=== PATIENT | female | born 1940 | race Caucasian/White ===

== ENCOUNTER 2017-09-10 22:05 | Emergency (ER) | payer MEDICARE, OTHER ==
[~2017-09-10] VITALS: Ht 154.9 cm; Wt 65.3 kg
[~2017-09-10 22:05] MED LIST: AMBIEN10 MG PO; ASPIRIN PO; BENZONATE PO; KEFLEX500 MG PO; LANTUS100 UNIT/2 SQ; LOVENOX30 MG/0.3 SC; METOPROLOL TART25 MG PO; NITROQUICK0.4 M1 SL; NORCO 7.5-3251 EACH PO; VALIUM5 MG PO; Z.0.GLUCOPHAGE500 MG PO; Z.0.NEXIUM40 MG PO; Z.0.PLAVIX75 MG PO; Z.0.PREDNISONE20 MG PO; Z.0.VICTOZA 2-0.6 MG SQ; Z.0.VYTORIN 10-801 E PO; Z.1.BENICAR HCT 401 PO; [UNRECOGNIZED DRUG - OTHER] PO; [UNRECOGNIZED DRUG - OTHER] PO; [UNRECOGNIZED DRUG - REMARK] PO
--- OUTSIDE RECORDS SUMMARY | 2017-09-10 22:08 | XMS REPORT | Continuity of Care Document ---
Author Author [facility] Address [address] [place] [address] ;ext= Care Team Providers Care Welder Apprentice Arc Name Role Phone ELIZABETH GRIMALDO Admjuan francisco ELIZABETH GRIMALDO [facility] Admission Diagnosis Code Admission Diagnosis Date [id number] Lumbar radiculopathy Social History Element Description Code Description Smoking Status Code System Start Date End Date Smoking Status [id number] Never smoker SNOMED-CT Problems Code Code System Problem Name Start Date End Date Status 120500177 SNOMED-CT Insect bite - wound 01/08/2017 Active 46130364 SNOMED-CT Poisoning due to brown recluse spider venom 01/08/2017 Active 324886540 SNOMED-CT Heart disease NOS Unknown Active 28040108 SNOMED-CT Hypertensive disorder Unknown Active 19805210 SNOMED-CT Diabetes mellitus type 2 Unknown Active Medications RxNorm Medication Dose Route Instructions Indications Start Date End Date Status benicar Active lantus Active metformin Active plavix Active victoza Active Allergies Code Code System Allergy Substance Type Reaction Severity Start Date End Date Status 84430 RXNorm IV Dye, Iodine Containing Contrast Media Drug allergy Unknown Active 14659 RXNorm Sulfa(Sulfonamide Antibiotics) Drug allergy Unknown Active Results Radiology Results Order: [id number] MRI LSPINE W/O CONTRAST* Exam Completion Date:05/02/2017 12:30 Procedure: MRI LSPINE W/O CONTRAST Exam Date: 05/02/2017 12:30 PMOrdering Provider: ELIZABETH Ramosinical Indication: Lumbar RADICULOPATHY. Low back pain radiating to the leftlegComparison: None Technique: Multisequence , multiplanar images of the lumbar spine were obtainedwithout administration of intravenous gadolinium based contrast. 0 cc contrastwas given.Findings: Extensive discogenic endplate changes are seen throughout the lumbar spine.Superior and inferior endplate Schmorl's formation is present in the lumbarvertebral bodies. There is no acute fracture or focal osseous destruction.There is slight straightening of normal lumbar lordosis..The conus terminates at L2-L3 level, within normal limits. Nerve roots of thecauda equina are unremarkable.L1-L2: Diffuse disc bulge and bilateral moderate facet degeneration. Nosignificant central canal stenosis. Neural foramina are patent.L2-L3: Diffuse disc bulge and mild bilateral facet degeneration. Mild ligamentumflavum buckling. Mild central canal stenosis. Neural foramina are patent.L3-L4: Left eccentric disc osteophyte complex, bilateral moderate facetdegeneration and ligamentum flavum hypertrophy. There is mild dorsal epidurallipomatosis. Moderate central canal stenosis. Moderate narrowing of the leftlateral recess. Mild to moderate left neural foraminal stenosis.L4-L5: Diffuse disc bulge, moderate to severe bilateral facet degeneration,dorsal epidural lipomatosis and ligamentum flavum buckling result in severecentral canal stenosis. Severe right and moderate left neural foraminalstenosis.L5-S1: Circumferential disc bulge and moderate bilateral facet degeneration arepresent. Mild ligamentum flavum buckling. No significant central canal stenosis.Moderate to severe left and moderate right neural foraminal stenosis.Other: Probable simple cyst in the lower pole of the right kidney.Impression:Multilevel, multifactorial spondylosis most notably at L4-L5 where there issevere central canal stenosis. Moderate central canal stenosis at L3-L4.Varying degrees of neural foraminal stenosis and lateral recess stenosisdetailed level by level above.This final report was electronically signed by Dr Molly Ryder MD 05/02/20173:56 PMDictated By: Bridger RYDER: 05/02/2017 16:02 Vital Signs * No data in the system Plan of Care * No data in the system Procedures Code Code System Procedure Name Target Site Date of Procedure MRI LSPINE W/O CONTRAST 05/02/2017 16:03 Encounters Date Code Diagnosis Status (ICD10) - M4726 OTH SPONDYLS RADICULOPATHY LUMB RGN Active Immunizations * No data in the system Functional Status * No data in the system Hospital Discharge Instructions * No data in the system
--- OUTSIDE RECORDS SUMMARY | 2017-09-10 22:08 | XMS REPORT | Continuity of Care Document ---
Author Author [facility] Organization [facility] Address [address] [place] [address] ;ext= Care Team Providers Care Healthcare Account Manager Name Role Phone SANCHO CARRASCO [facility] Admission Diagnosis Code Admission Diagnosis Date [id number] Tear of medial meniscus of knee Social History Element Description Code Description Smoking Status Code System Start Date End Date Smoking Status [id number] Former smoker SNOMED-CT 1976 Problems Code Code System Problem Name Start Date End Date Status 865241461 SNOMED-CT Insect bite - wound 01/08/2017 Active 30023491 SNOMED-CT Poisoning due to brown recluse spider venom 01/08/2017 Active 926194318 SNOMED-CT Backache Unknown Active 033729224 SNOMED-CT Heart disease NOS Unknown Active 603755402 SNOMED-CT Gastroesophageal reflux disease Unknown Active 7593293 SNOMED-CT Arthritis Unknown Active 86982714 SNOMED-CT Hypertensive disorder Unknown Active 82587584 SNOMED-CT Diabetes mellitus type 2 Unknown Active Medications RxNorm Medication Dose Route Instructions Indications Start Date End Date Status 169182 3 ML liraglutide 6 MG/ML Pen Injector 1.2 milligram Subcutaneous subcutaneously every day Active 093131 benzonatate 100 MG Oral Capsule 100 milligram Oral orally every 4 hours as needed. cough Active 899420 clopidogrel 75 MG Oral Tablet 75 milligram Oral orally every day Active 9635588 Diclofenac Sodium 75 MG / Misoprostol 0.2 MG Oral Tablet 1 tablet Oral orally 2 times per day Active 341627 ezetimibe 10 MG / Simvastatin 80 MG Oral Tablet 1 tablet Oral orally every day Active 190399 gabapentin 600 MG Oral Tablet 600 milligram Oral orally every day Active 247061 Hydrochlorothiazide 12.5 MG / Olmesartan medoxomil 40 MG Oral Tablet 1 tablet Oral orally every day Active HYDROCODONE-ACETAMINOPHEN 7.5MG-325MG TABLET 1 TABLET 1 TABLET ORAL ORAL EVERY 6 HOURS NEEDED as needed. 05/18/2017 Active 644574 Insulin Glargine 65 unit Subcutaneous subcutaneously every day at bedtime Active 888277 Metformin hydrochloride 850 MG Oral Tablet 850 milligram Oral orally 3 times per day Active 4917 Nitroglycerin 0.4 milligram Sublingual sublingually every 5 minutes as needed. (3 doses) (until response; do not exceed 3 doses per event;) chest pain Active 45686 pantoprazole 40 milligrams Oral orally every day Active benicar No Longer Active 281575 Fenofibrate 40 MG Oral Tablet 40 milligram Oral orally every day No Longer Active 61434 fexofenadine 60 milligram Oral orally 2 times per day No Longer Active lantus No Longer Active metformin No Longer Active plavix No Longer Active victoza No Longer Active Allergies Code Code System Allergy Substance Type Reaction Severity Start Date End Date Status 513088 RXNorm Benadryl Drug allergy Unknown Active 92465 RXNorm IV Dye, Iodine Containing Contrast Media Drug allergy Unknown Active 96509 RXNorm Sulfa(Sulfonamide Antibiotics) Drug allergy Unknown Active 7052 RXNorm morphine Drug allergy Unknown Active Results Radiology Results Order: [id number] MRI KNEE WO CONTRAST* Exam Completion Date:07/26/2017 16:15 Procedure: MRI KNEE WO CONTRAST Order Date: 07/26/2017 4:15 PMOrdering Provider: SANCHO Gibbonsical Indication: Complex tear of medial meniscus, current injury, leftknee, initial encounter. Medial left knee painComparison: None Technique: Multisequence, multiplanar images of the left knee were acquired without intravenous contrast.Findings: Menisci:Medial Meniscus: There is an oblique horizontal tear involving the posteriorhorn of the meniscus extending to the inferior articular surface. No significantmeniscal extrusion is present.Lateral Meniscus: There is blunting of the free margin of the body of themeniscus. No definite superimposed tear. No meniscal extrusion.Ligaments and Intercondylar Notch: There is diffusely thickened and somewhatheterogeneous appearance of the posterior cruciate ligament compatible withmucoid degeneration. The ACL, MCL, and LCL complex are intact.Articular Cartilage:Medial Compartment: There is grade 4 chondral thinning overlying the centraland posterior weightbearing surfaces of the medial femoral condyle.Lateral Compartment: There is a 1 cm x 1 cm focus of essentially full- thicknesscartilage loss about the anterior weightbearing surface of the lateral femoralcondyle.Patellofemoral Joint: Multifocal deep fissuring of the cartilage overlying thecentral femoral trochlea.Extensor Mechanism: The quadriceps and patellar tendon are intact. Bones: Remaining bone marrow signal intensity is normal. Prominenttricompartmental osteophyte formation is present most notably involving themedial compartment. Possible 1 cm osteophyte or intra-articular loose bodywithin the posterior aspect of the knee joint space..Soft Tissues/ Miscellaneous: Small knee joint effusion is present. There is asmall Kimble's cyst measuring up to 2 cm..IMPRESSION:Oblique horizontal tear involves the medial meniscus. No extrusion.Significant mucoid degeneration involves the posterior cruciate ligament withoutsuperimposed tear.Tricompartmental osteoarthritis most notably involving the medial compartmentwhere there is relatively high-grade cartilage loss about the medial femoralcondyle.Possible 1 cm marginal osteophyte or intravertebral body within the posterioraspect of the knee joint.Small joint effusion and small Kimble's cyst.This final report was electronically signed by Dr Molly Ryder MD 07/27/201711:48 AMDictated By: GLADYS RYDERKDate: 07/27/2017 11:54 Vital Signs * No data in the system Plan of Care * No data in the system Procedures Code Code System Procedure Name Target Site Date of Procedure MRI KNEE WO CONTRAST 07/27/2017 11:54 Encounters Date Code Diagnosis Status (ICD10) - U40344M COMPLEX TEAR MM CURR LT KNEE INIT Active Immunizations Vaccine Code Code System Vaccine Name Date Status 135 CVX influenza, high dose seasonal, preservative-free 02/18/2017 Completed Functional Status * No data in the system Hospital Discharge Instructions * No data in the system
--- OUTSIDE RECORDS SUMMARY | 2017-09-10 22:08 | XMS REPORT ---
Author Author [facility] Address Unknown Phone Unavailable Care Team Providers Care Trapper Animal Name Role Phone DANILO, SANCHO Unavailable Unavailable ELIZABETH GRIMALDO Unavailable Unavailable Problems This patient has no known problems. Allergies, Adverse Reactions, Alerts This patient has no known allergies or adverse reactions. Medications This patient has no known medications. Results Test Description Test Time Test Comments Text Results Atomic Results Result Comments MRI KNEE WO CONTRAST 2017-07-27 11:54:42 medial pain intermittent x years, hx of scope done 22 years ago Procedure: MRI KNEE WO CONTRASTOrder Date: 2017 4:15 PMOrdering Provider: SANCHO BURDICKERClinical Indication: Complex tear of medial meniscus, current injury, leftknee, initial encounter. Medial left knee painComparison: NoneTechnique: Multisequence, multiplanar images of the left knee were acquiredwithout intravenous contrast.Findings:Menisci:Medial Meniscus: There is an oblique horizontal tear [...] cm x 1 cm focus of essentially full-thicknesscartilage loss about the anterior weightbearing surface of the lateral femoralcondyle.Patellofemoral Joint: Multifocal deep fissuring of the cartilage overlying thecentral femoral trochlea.Extensor Mechanism: The quadriceps and patellar tendon are intact.Bones: Remaining bone marrow signal intensity is normal. Prominenttricompartmental osteophyte formation is present most notably involving themedial compartment. Possible 1 cm osteophyte or intra-articular loose bodywithin the posterior aspect of the knee joint space..Soft Tissues/Miscellaneous: Small knee joint effusion is present. There [...] electronically signed by Dr Molly Ryder MD 201711:[id number] AMDictated By: GLADYS RYDERKDate: 07/27/2017 11:54 URINALYSIS WITHOUT MICROSCOPIC 2017-05-16 11:38:00 Color (test code=UCOLR) YELLOW Clarity (test code=UCLAR) SL CLOUDY Glucose (test code=UGLUC) NEGATIVE NEGATIVE Bilirubin (test code=UBILI) NEGATIVE NEGATIVE Ketones (test code=UKET) NEGATIVE NEGATIVE Specific Vesta (test code=USPGR) 1.015 1.005-1.030 Blood (test code=UBLD) NEGATIVE NEGATIVE PH (test code=UPH) 5.5 4.5-8.0 Protein (test code=UPROT) NEGATIVE NEGATIVE Urobilinogen (test code=U UROB) 0.2 >0.2 Nitrite (test code=UNITR) NEGATIVE NEGATIVE Leukocyte Esterase (test code=ULEUK) TRACE NEGATIVE [id number] 11:35:00* Test Item Value Reference Range Comments Glucose (test code=GLU) 74 mg/dl 75-110 BUN (test code=BUN) 28.0 mg/dl 6.0-17.0 Creatinine (test code=CREA) 0.9 mg/dl 0.4-1.2 Sodium (test code=NA) 143 mmol/l 137-145 Potassium (test code=K) 5.0 mmol/l 3.5-5.0 Chloride (test code=CL) 103 mmol/l 98-107 CO2 (test code=CO2) 27 mmol/l 22-30 Calcium (test code=CALC) 10.9 mg/dl 8.4-10.2 EGFR if (test code=EGFRAA) >60 mL/min/1.73m\\S\\2 EGFR if Non- (test code=EGFRNA) >60 mL/min/1.73m\\S\\2 Estimated Glomerular Filtration Rate (eGFR) Reference Intervals Decision Points for 18 years and older and average body mass: >=60 Does not exclude kidney disease. 30 - 59 Suggests moderate chronic kidney disease and indicates the need for further investigation including assessment of proteinuria and cardiovascular factors. < 30 Usually indicates a need for referral for assessment and management of chronic kidney failure. CBC (HEMOGRAM ONLY)2017-05-16 10:48:00* Test Item Value Reference Range Comments WBC (test code=WBC) 10.93 10\\S\\3/ul 4.80-10.80 RBC (test code=RBC) 4.16 10\\S\\6/ul 4.20-5.40 Hemoglobin (test code=HGB) 11.8 gm/dl 12.0-14.0 Hematocrit (test code=HCT) 37.4 % 37.0-47.0 MCV (test code=MCV) 89.9 fL 81.0-99.0 MCH (test code=MCH) 28.4 pg 27.0-31.0 MCHC (test code=MCHC) 31.6 gm/dl 33.0-37.0 RDW (test code=RDWVC) 12.9 % 11.5-14.5 Platelet (test code=PLT) 194 10\\S\\3/ul 130-400 MPV (test code=MPV) 10.5 fL 7.4-10.4 "NOT MEASURED" RESULTS ARE DISPLAYED WHEN THE INSTRUMENT HAS A SUPPRESSED OR UNREPORTABLE RESULT. THIS WILL MOST OFTEN HAPPEN WITH THE MPV WHEN THERE IS AN ABNORMAL PLATELET DISTRIBUTION DUE TO A CRITICAL LOW VALUE OR PLATELET CLUMPING. THE RDW MAY BE SUPPRESSED IF THERE ARE MULTIPLE PEAKS PRESENT ON THE RBC HISTOGRAM. IN THIS CASE, A MANUAL REVIEW OF THE SLIDE WILL BE PERFORMED, AND RBC MORPHOLOGY WILL BE NOTED ON THE REPORT. MRI LSPINE W/O [id number] 16:02:57Lumbar pain that radiates to left calf onset 25 years ago. PT, chiropratic treatment and pain manageProcedure: MRI LSPINE W/O CONTRASTExam Date: 05/02/2017 12:30 PMOrdering Provider: ELIZABETH Ramosinical Indication: Lumbar RADICULOPATHY. Low back pain radiating to the leftlegComparison: NoneTechnique: Multisequence, multiplanar images of the lumbar spine were obtainedwithout administration of intravenous gadolinium based contrast. 0 cc contrastwas given.Findings:Extensive discogenic endplate changes are seen throughout the [...] Dr Molly Ryder MD 05/02/20173:56 PMDictated By: GLADYS RYDERKDate: 05/02/2017 16:02
--- OUTSIDE RECORDS SUMMARY | 2017-09-10 22:08 | XMS REPORT | Continuity of Care Document ---
Author Author [facility] Organization 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 Phone ELIZABETH GRIMALDO [facility] ELIZABETH GRIMALDO [facility] Admission Diagnosis Code Admission Diagnosis Date [id number] Low back pain Social History Element Description Code Description Smoking Status Code System Start Date End Date Smoking Status [id number] Former smoker SNOMED-CT 1976 Problems Code Code System Problem Name Start Date End Date Status 657876394 SNOMED-CT Insect bite - wound 01/08/2017 Active 40914484 SNOMED-CT Poisoning due to brown recluse spider venom 01/08/2017 Active 418763322 SNOMED-CT Backache Unknown Active 736163303 SNOMED-CT Heart disease NOS Unknown Active 912257752 SNOMED-CT Gastroesophageal reflux disease Unknown Active 0123585 SNOMED-CT Arthritis Unknown Active 69359069 SNOMED-CT Hypertensive disorder Unknown Active 15706862 SNOMED-CT Diabetes mellitus type 2 Unknown Active Medications RxNorm Medication Dose Route Instructions Indications Start Date End Date Status 125120 3 ML liraglutide 6 MG/ML Pen Injector 1.2 milligram Subcutaneous subcutaneously every day Active 290055 benzonatate 100 MG Oral Capsule 100 milligram Oral orally every 4 hours as needed. cough Active 638295 clopidogrel 75 MG Oral Tablet 75 milligram Oral orally every day Active 6840256 Diclofenac Sodium 75 MG / Misoprostol 0.2 MG Oral Tablet 1 tablet Oral orally 2 times per day Active 154751 ezetimibe 10 MG / Simvastatin 80 MG Oral Tablet 1 tablet Oral orally every day Active 258610 gabapentin 600 MG Oral Tablet 600 milligram Oral orally every day Active 883591 Hydrochlorothiazide 12.5 MG / Olmesartan medoxomil 40 MG Oral Tablet 1 tablet Oral orally every day Active HYDROCODONE-ACETAMINOPHEN 7.5MG-325MG TABLET 1 TABLET 1 TABLET ORAL ORAL EVERY 6 HOURS NEEDED as needed. 05/18/2017 Active 883824 Insulin Glargine 65 unit Subcutaneous subcutaneously every day at bedtime Active 434904 Metformin hydrochloride 850 MG Oral Tablet 850 milligram Oral orally 3 times per day Active 4917 Nitroglycerin 0.4 milligram Sublingual sublingually every 5 minutes as needed. (3 doses) (until response; do not exceed 3 doses per event;) chest pain Active 57066 pantoprazole 40 milligrams Oral orally every day Active benicar No Longer Active 318395 Fenofibrate 40 MG Oral Tablet 40 milligram Oral orally every day No Longer Active 08975 fexofenadine 60 milligram Oral orally 2 times per day No Longer Active lantus No Longer Active metformin No Longer Active plavix No Longer Active victoza No Longer Active Allergies Code Code System Allergy Substance Type Reaction Severity Start Date End Date Status 264482 RXNorm Benadryl Drug allergy Unknown Active 68579 RXNorm IV Dye, Iodine Containing Contrast Media Drug allergy Unknown Active 80327 RXNorm Sulfa(Sulfonamide Antibiotics) Drug allergy Unknown Active 7052 RXNorm morphine Drug allergy Unknown Active Results Laboratory Results Order: URINALYSIS W/O MICROSCOPIC EXAM LOINC Test Result Flag Range Unit Date 78 1Color:Type:Pt:Urine:Nom YELLOW 05/16/2017 11:00 5767-9 1Appearance:Aper:Pt:Urine:Nom SL CLOUDY 05/16/2017 11:00 2349-9 1Glucose:ACnc:Pt:Urine:Ord NEGATIVE NEGATIVE 05/16/2017 11:00 5770-3 1Bilirubin:ACnc:Pt:Urine:Ord:Test strip NEGATIVE NEGATIVE 11:00 2514-8 1Ketones:ACnc:Pt:Urine:Ord:Test strip NEGATIVE NEGATIVE 2016 11:00 5811-5 1Specific gravity:Rden:Pt:Urine:Qn:Test strip 1.015 A 1.005-1.030 05/16/2017 11:00 5794-3 1Hemoglobin:ACnc:Pt:Urine:Ord:Test strip NEGATIVE NEGATIVE 11:00 5803-2 1pH:LsCnc:Pt:Urine:Qn:Test strip 5.5 A 4.5-8.0 05/16/2017 11:00 30962-1 1Protein:ACnc:Pt:Urine:Ord:Test strip NEGATIVE NEGATIVE 05/16 11:00 5818-0 1Urobilinogen:ACnc:Pt:Urine:Ord:Test strip 0.2 0.2 05/16/2017 11:00 5802-4 1Nitrite:ACnc:Pt:Urine:Ord:Test strip NEGATIVE NEGATIVE 2016 11:00 5799-2 1Leukocyte esterase:ACnc:Pt:Urine:Ord:Test strip TRACE A NEGATIVE 05/16/2017 11:00 * Performing Lab Footnotes:* [address] [place] [address] [id number] [place] [id number] [place] - MD: DIRECTOR SOLEDAD RDZ Order: BMP BASIC METABOLIC PANEL LOINC Test Result Flag Range Unit Date 1Glucose 74 L 75-110 mg/dl 05/16/2017 10:33 1BUN 28 H 6.0-17.0 mg/dl 05/16/2017 10:33 1Creatinine 0.9 0.4-1.2 mg/dl 05/16/2017 10:33 1Sodium 143 137-145 mmol/l 05/16/2017 10:33 1Potassium 5 3.5-5.0 mmol/l 05/16/2017 10:33 1Chloride 103 98-107 mmol/l 05/16/2017 10:33 1CO2 27 22-30 mmol/l 05/16/2017 10:33 1Calcium 10.9 H 8.4-10.2 mg/dl 05/16/2017 10:33 1EGFR if >60 mL/min/1.73m^2 05/16/2017 10:33 1EGFR if Non- >60 mL/min/1.73m^2 05/16/2017 10:33 Note: Estimated Glomerular Filtration Rate (eGFR) Reference Intervals Decision Points for 18 years and older and average body mass: >=60 Does not exclude kidney disease. 30 - 59 Suggests moderate chronic kidney disease and indicates the need for further investigation including assessment of proteinuria and cardiovascular factors. < 30 Usually indicates a need for referral for assessment and management of chronic kidney failure. * Performing Lab Footnotes:* [address] [place] [address] - [id number] - [address] [facility] [address] - [place] [address] [facility] - MD: DIRECTOR SOLEDAD RDZ Order: CBC - HEMOGRAM ONLY LOINC Test Result Flag Range Unit Date 1Leukocytes^^corrected for nucleated erythrocytes:NCnc:Pt:Bld:Qn: Automated count 10.93 H 4.80-10.80 10^3/ul 05/16/2017 10:33 789-8 1Erythrocytes:NCnc:Pt:Bld:Qn:Automated count 4.16 L 4.20-5.40 10^6/ ul 05/16/2017 10:33 718-7 1Hemoglobin:MCnc:Pt:Bld:Qn 11.8 L 12.0-14.0 gm/dl 05/16/2017 10:33 4544-3 1Hematocrit:VFr:Pt:Bld:Qn:Automated count 37.4 37.0-47.0 % 05/16 10:33 787-2 1Erythrocyte mean corpuscular volume:EntVol:Pt:RBC:Qn:Automated count 89.9 81.0-99.0 fL 05/16/2017 10:33 785-6 1Erythrocyte mean corpuscular hemoglobin:EntMass:Pt:RBC:Qn:Automated count 28.4 27.0-31.0 pg 05/16/2017 10:33 786-4 1Erythrocyte mean corpuscular hemoglobin concentration:MCnc:Pt:RBC:Qn: Automated count 31.6 L 33.0-37.0 gm/dl 05/16/2017 10:33 788-0 1Erythrocyte distribution width:Ratio:Pt:RBC:Qn:Automated count 12.9 11.5-14.5 % 05/16/2017 10:33 777-3 1Platelets:NCnc:Pt:Bld:Qn:Automated count 194 130-400 10^3/ul 10:33 05795-8 1Platelet mean volume:EntVol:Pt:Bld:Qn:Automated count 10.5 A 7.4- 10.4 fL 05/16/2017 10:33 Note: 'NOT MEASURED' RESULTS ARE DISPLAYED WHEN THE INSTRUMENT HAS [...] MORPHOLOGY WILL BE NOTED ON THE REPORT. * Performing Lab Footnotes:* [address] [place] [address] - [id number] - [address] [place] [place] [address] [facility] [place] [address] [facility] - MD: DIRECTOR SOLEDAD RDZ Vital Signs Vitals Value Date BP Systolic 108 mmHg 05/19/2017 BP Diastolic 56 mmHg 05/19/2017 Body Temperature 98.3 F 05/19/2017 Respiratory Rate 16 05/19/2017 O2% BldC Oximetry 93 05/19/2017 Weight Measured 154.32 lbs 05/19/2017 BSA (Body Surface Area) 1.39518 05/16/2017 BMI (Body Mass Index) 30.2 05/16/2017 Height 60 in 05/16/2017 Plan of Care * No data in the system Procedures Code Code System Procedure Name Target Site Date of Procedure FL PRT FLUORO UP TO 1 HR 05/18/2017 11:37 07185 CPT4 CAMPOS FACETECTOMY & FORAMOTOMY 1 SEGMENT L 05/18/2017 36047 CPT4 CAMPOS FACETECTOMY&FORAMTOMY 1 SGM EA CRV T 05/18/2017 30864547 SNOMED Catheterization of both left and right heart 2006 Encounters Date Code Diagnosis Status (ICD10) - W69868 SPINAL STENOSIS LUMBAR REGION NO NC Active Immunizations Vaccine Code Code System Vaccine Name Date Status 135 CVX influenza, high dose seasonal, preservative-free 02/18/2017 Completed Functional Status Code Functional/Cognitive Condition Code System Date Status 692866168 No speech problem (situation) SNOMED-CT 05/19/2017 Active 222672905 Firm pressure touch, function (observable entity) SNOMED-CT 2016 Active 543465133 Orientated SNOMED-CT 05/19/2017 Active 667843478 Orientated SNOMED-CT 05/19/2017 Active 623055061 Orientated SNOMED-CT 05/19/2017 Active 308814776 Oriented to person SNOMED-CT 05/19/2017 Active 89856408 Normal vision SNOMED-CT 05/18/2017 Active Hospital Discharge Instructions * Psychosocial* Assistance Required* None * Patient/Family Concerns* None * Emotional State* Calm * Housing Type* House * Emotional State* Pleasant * Discharge Instructions* Discharge Diagnosis* S/p Lumbar laminectomy * Physician Name for Follow Up Appt #1* Call Dr. Herrera's office on Sunday to make appointment. ([phone]) * Pneumonia Vaccine* Does Not Meet Criteria * IV Removed Date* 05/19/2017 * Copy of Advanced Directive given to Patient* No * Referral Required* None * Activity Level* No lifting over 5 pounds or driving until cleared by Dr. Herrera * No Driving * No Heavy Lifting * Other * Medications* Prescriptions Given * Take all medications as listed on your Discharge Medication List as directed * DO NOT STOP taking your medicine(s) until directed by your doctor. * Diet* Resume previouse diet * Other * Discharge Instructions* Patient education provided * Wound Care * Follow Up Care* Yes * Patient To Schedule * Written Discharge Plan given to the Patient at the time of discharge contains: * Reason for hospitalization * Discharge medications including what medications to take, how to take them, and how to obtain the medication. * Patient / family / caregiver given instructions on what to do if their condition changes. * Coordination and planning for follow-up appointments that the patient can keep. * Coordination and planning for follow-up of tests and studies for which confirmed results are not available at time of discharge. * Influenza Vaccine NOT Given, State Reason(s) Below:* Refused By Patient/ Caregiver * Discharge Instructions 2* Wound / Incision Care* Leave dressing on for 3 days. Then remove and leave open to air. Keep area clean and dry. no oils or lotions. * Other * Smoking Cessation Teaching* Patient is a current smoker or former smoker of less than one year * Discharge Education* Copy of Discharge Medication List * Discussed New / Changed Medications * Discharge Medication Education* Take all medications as listed on your Discharge Medication List as directed * Remember: Get permission from your doctor before taking any additional medications like vitamins, herbal medications, sexual dysfunction pills, alcoholic beverages or any medications you get at your pharmacy without a prescription * Carry a complete, up-to-date list of your home medications with you at all times * Your medication list should be updated when medications are discontinued, doses are changed or new medications are added. A copy of your completed discharge Medication List is attached. * Personal Belongings Returned To Patient/Family* N/A * Valuables Returned To Patient/Family* N/A * Pre-Admission Medications Returned To Patient/Family* N/A * Patient/Significant Other Education Acknowledgement* I hereby acknowledge receiving the explanation of the attached instructions. I was able to 'teach back' my health information and education to my nurse and I understand what I was taught as indicated by my signature below. * Person Receiving Discharge Instructions* Dillon Galeano * Discharge Instructions Explained To* Patient * Significant Other * Discharge Summary* Accompanied By* Spouse * Mode Of Discharge* Wheelchair * Discharge Status* Vital Signs Stable * Patient Transferred/Discharged To* Home * Discharge Status* Afebrile * Adequate Diet/Liquid Intake * Adequate Urinary Output * Adequate Bowel Functioning * Activity Tolerated within Physical Limits * Home Health Care Monitoring Required* No * Pain At Discharge* Denies Pain * Record Skin Lesions* No Data* S/p lumbar laminectomy. covered with gauze and microfoam tape. * 'Spine, Lower* Other
[2017-09-10] MEDS ORDERED: INSULIN REGULAR, HUMAN 100 UNIT/1 ML 3ML VIAL SQ ONE (22:45)
== END 2017-09-10 23:08 | disposition home or self-care (01) ==
LOC: FSED 22:05
DX: E11.649 Type 2 diabetes mellitus with hypoglycemia without coma (principal)
CPT/HCPCS: 82948; 99282